=== PATIENT | male | born 1970 | race African-American/Black ===

== ENCOUNTER 2018-11-06 15:01 | Emergency (ER) | payer SELFPAY ==
--- NOTE | 2018-11-06 16:43 | RAD ---
RIGHT HUMERUS 2 VIEWS: Date: 11/06/18 INDICATION: Pain. FINDINGS: There is no evidence of fracture or dislocation. Mild degenerative change seen. IMPRESSION: No acute osseous abnormality of the right humerus. POS: [facility]
--- NOTE | 2018-11-06 16:44 | RAD ---
RIGHT HAND 3 VIEWS: Date: 11/06/18 HISTORY: Pain. COMPARISON: 04/01/10. FINDINGS: No fracture. No cortical irregularity. No periosteal reaction. Joint spaces preserved. IMPRESSION: Unremarkable right hand 3 views. POS: [facility]
--- NOTE | 2018-11-06 16:45 | RAD ---
RIGHT ELBOW 4 VIEWS: Date: 11/06/18 HISTORY: Pain. COMPARISON: None. FINDINGS: There is ossification of the proximal common extensor and flexor tendons. There is also extensive ent hesopathic change through the triceps tendon insertion upon the olecranon. There is mild olecranon bursitis. No significant joint effusion. IMPRESSION: 1. 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 2. Extensive enthesopathic change of the triceps tendon insertion upon the olecranon with overlying mild olecranon bursitis. POS: [facility]
[2018-11-06] MEDS ORDERED: Naproxen 500 MG TAB ONE (17:46)
== END 2018-11-06 17:52 | disposition home or self-care (01) ==
LOC: ERS 15:01
DX: M70.31 Other bursitis of elbow, right elbow (principal); I10 Essential (primary) hypertension; Z79.899 Other long term (current) drug therapy; W18.30XA Fall on same level, unspecified, initial encounter